=== PATIENT | male | born 1965 | race Caucasian/White ===

== ENCOUNTER → 2016-12-01 | Outpatient (CLI) | payer BC ==
[~2016-12-01] MED LIST: ALBUAER2 INH; CLR10 PO; ESCI10TA17 PO
--- NOTE | 2016-12-01 07:39 | DIAGNOSTIC IMAGING REPORT ---
ULTRASOUND ABDOMEN COMPLETE CLINICAL HISTORY: Right-sided varicocele. COMPARISON STUDY: No priors. TECHNIQUE: Real-time, grayscale, and color flow sonography of the abdomen was performed. Images are reviewed in the transverse and longitudinal planes. FINDINGS: Liver: The liver is enlarged and demonstrates heterogeneously increased echotexture consistent with hepatic steatosis. Note that this degrades acoustic penetration of liver. There is no intrahepatic biliary ductal dilatation. The main portal vein is patent. Gallbladder: The gallbladder is normal in appearance. No gallstones are identified. There is no gallbladder wall thickening or pericholecystic fluid. A sonographic Lion's sign is reportedly absent. The common bile duct measures up to 0.4 cm in diameter. Pancreas: Visualized portions of the pancreatic head and body are normal in appearance. Spleen: The spleen is normal in size and echotexture, measuring 11.6 cm in length. Kidneys: The kidneys are normal in size and echotexture. There is no hydronephrosis. The right kidney measures 10.6 cm in length and the left kidney measures 11.6 cm in length. A 2.7 cm focus of lobulation is noted in the interpolar left kidney. No shadowing calculi are identified. Abdominal vasculature: Visualized portions of the abdominal aorta and IVC are normal in appearance. Ascites: None. IMPRESSION: 1. No acute abnormality or mass lesion is identified. 2. Hepatomegaly and hepatic steatosis. 3. A 2.7 cm focus of lobulation is noted in the interpolar left kidney. This is of low suspicion and likely represents normal parenchyma. Correlation with a contrast-enhanced abdominal CT is recommended to exclude underlying renal mass. Electronically signed by: George Mittal M.D. 12/01/2016 7:38 AM Dictated Date/Time: 12/01/2016 7:35 AM
== END | disposition home or self-care (01) ==
LOC: C.ULTR 06:52
PROVIDERS: ATTEND Urology
DX: I86.1 Scrotal varices (principal); R16.0 Hepatomegaly, not elsewhere classified; K76.0 Fatty (change of) liver, not elsewhere classified; R93.422 Abnormal radiologic findings on diagnostic imaging of left kidney

== ENCOUNTER → 2016-12-12 | Outpatient (CLI) | payer BC ==
[2016-12-12 10:14] LABS: BLOOD UREA NITROGEN 18 mg/dl (7-18); BUN/CREATININE RATIO 22.5 (10-20); CREATININE 0.82 mg/dl (0.60-1.40)
== END | disposition home or self-care (01) ==
LOC: C.LAB 06:59
PROVIDERS: ATTEND Urology
DX: Z12.5 Encounter for screening for malignant neoplasm of prostate (principal); R93.8 Abnormal findings on diagnostic imaging of other specified body structures

== ENCOUNTER → 2016-12-20 | Outpatient (CLI) | payer BC ==
[~2016-12-20] MED LIST changes: +OPTIRAY 320 IV PRN
--- NOTE | 2016-12-20 07:26 | DIAGNOSTIC IMAGING REPORT ---
CT ABD WITH IV AND ORAL CONT (CT) CLINICAL HISTORY: I86.1 Right varicocele R93.8 Abnormal findings on abdominal ultrasound. Possible left renal mass. COMPARISON STUDY: Ultrasound dated 12/01/2016 TECHNIQUE: Following the IV administration of 93 mL of Optiray-[id number], CT scan of the abdomen and pelvis was performed from the lung bases to the proximal femurs. Images are reviewed in the axial, sagittal, and coronal planes. IV contrast was administered without complication. A dose lowering technique was utilized adhering to the principles of ALARA. CT DOSE: 1167.85 mGy.cm FINDINGS: Lower chest: There are mild dependent atelectatic changes. Liver: There is minimal hepatic steatosis. No focal masses are visualized. Gallbladder: Unremarkable. Spleen: Normal in size and attenuation. Pancreas: Unremarkable. Adrenal glands: Unremarkable. Kidneys: There is symmetric renal cortical enhancement. The kidneys are normal in size without hydronephrosis. No renal masses are visualized. A contour deformity of the left kidney described the prior ultrasound is felt to represent normal parenchyma Bowel: The visualized portions of the bowel are unremarkable. Peritoneum: There is no intraperitoneal free air or abdominal ascites. Vasculature: The abdominal aorta is normal in course and caliber. Adenopathy: None. Skeletal structures: No destructive osseous lesions are seen. IMPRESSION: No acute abdominal findings. No renal masses are visualized. Electronically signed by: Jose Ramirez M.D. 12/20/2016 7:25 AM Dictated Date/Time: 12/20/2016 7:20 AM
== END | disposition home or self-care (01) ==
LOC: C.CTS 06:54
PROVIDERS: ATTEND Urology
DX: I86.1 Scrotal varices (principal); R93.8 Abnormal findings on diagnostic imaging of other specified body structures

== ENCOUNTER → 2016-12-22 | Outpatient (CLI) | payer BC ==
[~2016-12-22] MED LIST changes: -OPTIRAY 320 IV PRN
[2016-12-22 09:46] LABS: BLOOD UREA NITROGEN 19 mg/dl (7-18); CREATININE 0.87 mg/dl (0.60-1.40)
== END | disposition home or self-care (01) ==
LOC: C.LAB 07:03
PROVIDERS: ATTEND Urology
DX: R93.8 Abnormal findings on diagnostic imaging of other specified body structures (principal)